=== PATIENT | female | born 1980 | race Caucasian/White ===

== ENCOUNTER → 2017-11-09 16:11 | Outpatient (CLI) | payer OTHER, SELFPAY ==
[2017-11-09 17:46] LABS: HCG Quantitative /Beta subunit 204.51 mIU/mL
== END ==
PROVIDERS: Family Provider Obstetrics & Gynecology; PCP Obstetrics & Gynecology; Visit Provider Obstetrics & Gynecology
DX: N91.2 Amenorrhea, unspecified (principal); Z87.59 Personal history of other complications of pregnancy, childbirth and the puerperium
CPT/HCPCS: 36415; 84702

== ENCOUNTER → 2017-11-11 12:19 | Outpatient (CLI) | payer OTHER, SELFPAY ==
[2017-11-11 15:39] LABS: HCG Quantitative /Beta subunit 499.83 mIU/mL
== END ==
PROVIDERS: PCP Obstetrics & Gynecology; Visit Provider Obstetrics & Gynecology
DX: N91.2 Amenorrhea, unspecified (principal); Z87.59 Personal history of other complications of pregnancy, childbirth and the puerperium
CPT/HCPCS: 36415; 84702

== ENCOUNTER → 2017-11-16 08:33 | Outpatient (CLI) | payer OTHER, SELFPAY ==
[2017-11-16 10:07] LABS: HCG Quantitative /Beta subunit 4533.7 mIU/mL
== END ==
PROVIDERS: Family Provider Obstetrics & Gynecology; PCP Obstetrics & Gynecology; Visit Provider Obstetrics & Gynecology
DX: Z87.59 Personal history of other complications of pregnancy, childbirth and the puerperium (principal)
CPT/HCPCS: 36415; 84702

== ENCOUNTER → 2017-12-20 10:15 | Outpatient (CLI) | payer OTHER, SELFPAY ==
[2017-12-20 11:59] LABS: HCG Quantitative /Beta subunit 87670 mIU/mL
== END ==
PROVIDERS: PCP Obstetrics & Gynecology; Visit Provider Obstetrics & Gynecology
DX: Z34.90 Encounter for supervision of normal pregnancy, unspecified, unspecified trimester (principal)
CPT/HCPCS: 36415; 84702

== ENCOUNTER → 2017-12-22 09:02 | Outpatient (CLI) | payer OTHER, SELFPAY ==
[2017-12-22 11:33] LABS: HCG Quantitative /Beta subunit 60086 mIU/mL
== END ==
PROVIDERS: PCP Obstetrics & Gynecology; Visit Provider Obstetrics & Gynecology
DX: Z34.90 Encounter for supervision of normal pregnancy, unspecified, unspecified trimester (principal)
CPT/HCPCS: 36415; 84702

== ENCOUNTER 2017-12-27 10:51 | Day surgery (SDC) | payer OTHER, SELFPAY ==
[2017-12-23 10:16] VITALS: BMI 23.3
--- NOTE | 2017-12-27 | DI.US.S_ITS ---
PROCEDURE: US OB <= 14 WEEKS FETUS INDICATIONS: 77642 SUCTION D C OUTSIDE/PRIOR DATING DATA: Last menstrual period (LMP): No available. LMP-based estimated date of delivery (CURTIS): Not available. First dating scan (date and location): n.a. Estimated date of delivery (CURTIS) from first dating scan: n.a. TECHNIQUE: Real-time scanning was performed of the fetus and maternal pelvic organs, with image documentation. Endovaginal scanning was also performed to better visualize the fetus and maternal ovaries. COMPARISON: [facility], , OB <= 14 WEEKS FETUS, 12/20/2017, 10:03. [facility], , US OB <= 14 WEEKS FETUS, 11/16/2017, 8:23. FINDINGS: Embryo: There is an intrauterine gestational sac and a pole. Based on the crown-rump length, the estimated gestational age is 9 weeks 0 day. No heart tone is present. The finding is consistent with demise. Measurement variability in dating: +/- 4 weeks by LMP, +/- 7 days by mean sac diameter (use before 6 weeks gestation if crown-rump length not able to be measured), +/- 5 days by crown-rump length (up to 8 weeks 6 days gestation), +/- 7 days by crown-rump length (up to 13 weeks 6 days gestation). Maternal organs: Ovaries are not evaluated. IMPRESSION: A 9 week 0 day intrauterine gestation with no heart tone. The finding is consistent with demise. Recommend clinical correlation. The result was communicated to Dr. Lima by production line at the time of the exam. Dictated by: Marcela Odom M.D. on 12/27/2017 at 16:14 Approved by: Marcela Odom M.D. on 12/27/2017 at 16:20
--- NOTE | 2017-12-27 | PATH_ITS ---
[facility] Accession Number: [id number] . 01 Material submitted: . PRODUCTS OF CONCEPTION . 02 Diagnosis: Specimen Designated Products of Conception: Multiple fragments of immature placental tissue with vascularized chorionic villi containing erythrocytes, admixed with decidual tissue and gravid endometrium. MRV/12/29/2017 . 02 Electronically signed: . Warren Rodriguez MD, Pathologist NPI- [id number] . 01 Gross description: . Received in formalin, labeled products of conception, are multiple fragments of botello tissue (10.7 x 2.5 x 0.2 cm in aggregate). No tissue is identified. Filtered and entirely submitted in cassettes A1-A4. Note: Per the requisition, this is a split sample. ([id number]) /MRV . 02 Pathologist provided ICD-10: O02.1 . 02 CPT . 560937 Performed at: 01 [facility] [address] [facility], [place], [place] [id number] MD Jemal Gay MD Phone: [phone] Performed at: 02 [facility] [address] [place], [place] [id number] MD Jasmeet Jordan MD Phone: [phone]
[2017-12-27 11:58] VITALS: BP 107/69; PULSE 61; RESP 18; TEMP 36.7; O2SAT 100; BMI 23.3
[2017-12-27] MEDS: LACTATED RINGERS 1,000 ML 100 ML IV (12:08)
--- NOTE | 2017-12-27 13:12 | PM.PREOP ---
Pre-operative Note Interval Note Pre-op Check: Yes History & Physical exam performed today by Physician Changes: No
[2017-12-27 13:40] VITALS: BP 85/55; PULSE 56; RESP 11; TEMP 37; O2SAT 97
[2017-12-27 13:45] VITALS: BP 93/60; PULSE 74; RESP 15; O2SAT 98
--- NOTE | 2017-12-27 13:53 | SUR.OPER ---
Lithotomy on padded OR bed, head on pillow, arms secured on padded arm boards at <90 degrees abduction. Legs secured in padded yellow fins stirrups.
[2017-12-27 13:56] VITALS: BP 93/62; PULSE 73; RESP 14; TEMP 36.9; O2SAT 99
[2017-12-27 13:59] VITALS: BP 90/59; PULSE 71; RESP 14; O2SAT 100
[2017-12-27 14:28] VITALS: BP 94/65; PULSE 62; RESP 18; O2SAT 100
--- NOTE | 2017-12-27 18:01 | P.HPOB_ITS ---
History of Present Illness Narrative: Solomon Pan is a 37 year old female 6 para 2 presents for a suction D&C due to a missed [facility] Medical History Ectopic (Resolved 07/12/17) Surgical History History of gynecologic surgery (Resolved 07/12/17) Status post delivery (Resolved 03/14/15) Status post dilation and curettage (Resolved 10/29/16) Social History household members: spouse Smoking Status: Never smoker Meds Home Medications Medication Instructions Recorded Confirmed Type No Known Home Medications 11/16/17 12/27/17 History oxycodone-acetaminophen [Percocet] 1 tab PO Q4-6H PRN #20 tab 12/27/17 Rx Allergies Allergy/AdvReac Type Severity Reaction Status Date / Time No Known Drug Allergies Allergy Unverified 12/27/17 12:07 Exam Vital Signs (past 8 hours): - 12/27/17 11:58 12/27/17 13:40 12/27/17 13:45 Temperature 98.1 F 98.6 F Pulse Rate 61 56 L 74 Respiratory Rate 18 11 L 15 Blood Pressure 107/69 85/55 L 93/60 Pulse Oximetry 100 97 98 12/27/17 13:56 12/27/17 13:59 12/27/17 14:28 Temperature 98.4 F Pulse Rate 73 71 62 Respiratory Rate 14 14 18 Blood Pressure 93/62 90/59 L 94/65 Pulse Oximetry 99 100 100 Oxygen Delivery Method Room Air Narrative Exam Narrative: HEENT: No thyromegaly, no anterior cervical or supraclavicular lymphadenopathy. Lungs:Clear to auscultation bilaterally, no wheezes. Cardiovascular: Regular rate and rhythm, no murmurs, rubs, or gallops. Abdomen: Well-healed Pfannenstiel and laparoscopy scars. No hepatosplenomegaly. No masses palpable. External genitalia: Normal Vagina: Normal Cervix: Normal Bimanual exam: 8 Week size uterus. Mobile.] Rectal: No masses. Assessment & Plan (1) Missed : Current visit: No Status: Acute Plan: Assessment/Plan Narrative: Assessment: 37-year-old 6 para 2 with a missed at 8 weeks Plan: Suction D&C The risks, benefits, and alternatives to the procedure were explained to the patient. The risks including bleeding, infection, and uterine perforation. She understands these risks and agrees to proceed. A full capital P AR-Q was held and consent form was signed.
--- NOTE | 2017-12-27 18:01 | PM.GYNOP.1 ---
Operative Date/Time/Diagnoses Date of procedure: 12/27/17 Time of procedure: 13:20 Pre-op diagnosis: Missed at 8 weeks Post-op diagnosis: same Procedure: Procedures Operation Date: 12/27/17 14:45 Actual Procedures Side Surgeon p Dilation and Curettage-Suction Andreina Lima MD suction D&C Indications: Missed at 8 weeks Surgeon: Andreina Lima Anesthesia Type: General Operative Notes Findings: 8 week size anteverted uterus Large amount of products of conception Closure Type: not applicable Specimen(s): uterine contents (Products of conception) Applied: catheter (In and out) Estimated blood loss (mL): 100 Blood products transfused: none Procedure in detail: After informed consent was obtained, the patient was taken to the operating room where she was placed in the dorsal supine position. After adequate LMA general anesthesia was achieved, she was placed in the dorsal lithotomy position, and prepped and draped in the usual sterile fashion. A bivalve speculum was placed into the vagina, and the anterior lip of the cervix grasped with a single-tooth tenaculum. The cervical os was sequentially dilated to the #8 Hegar dilator. The #7 Curved plastic curette could pass easily into the endometrial cavity. Several passes with suction revealed a large amount of fluid and tissue. The suction curette was removed. Gentle sharp curettage was performed yielding a moderate amount of tissue. Several more passes with suction revealed tissue on the 1st pass and blood only on the 2nd and 3rd passes. The instruments were removed from the uterus. The single-tooth tenaculum was removed from the anterior lip of the cervix. The bivalve speculum was removed from the vagina. Complications: none Post-operative Condition: stable Disposition: PACU Plan for aftercare: To home after recovery
== END 2017-12-27 17:00 | disposition home or self-care (01) ==
LOC: OR 10:52 → US 11:04 → OR 12-30 15:41
PROVIDERS: PCP Obstetrics & Gynecology; Visit Provider Obstetrics & Gynecology
PROC: (CPT 58120; principal; 2017-12-27 14:45)
DX: O02.1 Missed abortion (principal); Z3A.08 8 weeks gestation of pregnancy
CPT/HCPCS: 59820; 76801; 76830; J1100; J1885; J2250; J2405; J2704; J3010

== ENCOUNTER → 2018-11-28 10:39 | Outpatient (CLI) | payer OTHER, SELFPAY | PROVIDERS: PCP Obstetrics & Gynecology; Visit Provider Obstetrics & Gynecology | DX: Z11.3 Encounter for screening for infections with a predominantly sexual mode of transmission (principal) | CPT/HCPCS: 87491; 87591 ==

== ENCOUNTER → 2020-05-30 09:09 | Outpatient (CLI) | payer OTHER, SELFPAY ==
--- NOTE | 2020-05-30 09:10 | DI.US.S_ITS ---
PROCEDURE: US PELVIC COMPLETE INDICATIONS: PAIN; HISTORY OF ECTOPIC TECHNIQUE: Real-time scanning was performed of the pelvic organs, with image documentation. Additional endovaginal scanning was necessary due to incomplete visualization of the adnexal and endometrial structures by transabdominal scanning. COMPARISON: [facility], US, US PELVIC COMPLETE, 03/21/2018, 10:02. FINDINGS: Uterus: Uterus is normal in size at 10 x 4.1 x 5.9 cm. The endometrium measures 6 mm in combined thickness. Ovaries: The right ovary measures 4.2 x 2.6 x 2.8 cm. The left ovary measures 3.3 x 1.8 x 3.4 cm. The ovaries have a normal sonographic appearance, with a simple appearing cyst seen involving the right ovary measuring 1.8 cm, which is considered to be within physiologic limits. No adnexal masses are seen. Other: No pathologic free abdominal or pelvic fluid. IMPRESSION: No significant pelvic ultrasound abnormality can be seen. Dictated by: Antonio Moser M.D. on 05/30/2020 at 11:28 Approved by: Antonio Moser M.D. on 05/30/2020 at 11:29
[2020-05-30 10:42] LABS: HCG Quantitative /Beta subunit < 2.4 mIU/mL
== END ==
PROVIDERS: Referring Provider Obstetrics & Gynecology; Visit Provider Obstetrics & Gynecology
DX: O09.10 Supervision of pregnancy with history of ectopic pregnancy, unspecified trimester (principal)
CPT/HCPCS: 36415; 76830; 76856; 84702